=== PATIENT | male | born 1955 | race Caucasian/White ===

== ENCOUNTER 2019-10-14 18:13 | Emergency (ER) | payer OTHER ==
[2019-10-14 18:21] VITALS: TEMP 98.4; BMI 29.4
--- NOTE | 2019-10-14 19:04 | PDOC ---
Documentation entered by Pascale Mitchell SCRIBE, acting as scribe for Roc Toney MD. Roc Toney MD: This documentation has been prepared by the josafatibeStephen Maria, SCRIBE, under my direction and personally reviewed by me in its entirety. I confirm that the documentation accurately reflects all work, treatment, procedures, and medical decision making performed by me. History of Present Illness - General Chief Complaint: Pain Stated Complaint: RIGHT ANKLE PAIN Time Seen by Provider: 10/14/19 18:14 - History of Present Illness Initial Comments: 10/14/19 18:27 Patient is a 64 year old male with a significant past medical history of HLD and anxiety who presents to the emergency room with pain and swelling to his right ankle with a severity of 2/10. Patient states he was in his garden moving some things when he stepped on a rock and twisted his ankle. As per patient he immediately took 4 advils and iced his ankle with no sign of relief prompting him to the ER. Patient denies falling and trauma. He denies any recent fevers, chills, headache or dizziness. He denies any recent nausea, vomiting, diarrhea or constipation. He denies any recent chest pain or shortness of breath. He denies any recent dysuria, frequency, urgency or hematuria. Allergies: NKDA 10/14/19 18:30 Past History - Past Medical History Allergies/Adverse Reactions: Allergies Allergy/AdvReac Type Severity Reaction Status Date / Time No Known Drug Allergies Allergy Verified 10/14/19 18:18 celery AdvReac Intermediate Verified 10/14/19 18:18 chocolate flavor AdvReac Intermediate Verified 10/14/19 18:18 melon AdvReac Intermediate Verified 10/14/19 18:18 onion AdvReac Intermediate Verified 10/14/19 18:18 cantaloupe AdvReac Intermediate Uncoded 10/14/19 18:18 Home Medications: Ambulatory Orders Naproxen [Naprosyn -] 375 mg PO BID PRN #14 tablet 10/14/19 Review of Systems - Review of Systems Able to Perform ROS?: Yes Comments:: 10/14/19 18:27 CONSTITUTIONAL: Absent: Fever, Chills, Diaphoresis, Generalized Weakness, Malaise, Loss of Appetite HEENT: Absent: Rhinorrhea, Nasal Congestion, Throat Pain, Throat Swelling, Difficulty Swallowing, Mouth Swelling, Ear Pain, Eye Pain, Visual Changes CARDIOVASCULAR: Absent: Chest Pain, Syncope, Palpitations, Irregular Heart Rate, Lightheadedness , Peripheral Edema RESPIRATORY: Absent: Cough, Shortness of Breath, SOB with Exertion, Orthopnea, Wheezing, Stridor, Hemoptysis GASTROINTESTINAL: Absent: Abdominal pain, Abdominal Distension, Nausea, Vomiting, Diarrhea, Constipation, Melena, Hematochezia GENITOURINARY: Absent: Dysuria, Frequency, Urgency, Hesitancy, Flank Pain, Genital Pain MUSCULOSKELETAL:+Ankle pain and swelling. Absent: Myalgia, Arthralgia, Joint Swelling, Back pain, Neck Pain SKIN: Absent: Rash, Itching, Pallor HEMEATOLOGIC/IMMUNOLOGIC: Absent: Easy Bleeding, Easy Bruising, Lymphadenopathy, Frequent infections ENDOCRINE: Absent: Unexplained Weight Gain, Unexplained Weight Loss, Heat Intolerance, Cold Intolerance NEUROLOGIC: Absent: Headache, Focal Weakness, Paresthesias, Vertigo, Lightheadedness, Unsteady Gait, Seizure, Mental Status Changes, Incontinence PSYCHIATRIC: Absent: Anxiety, Depression *Physical Exam - Vital Signs Last Vital Signs Temp Pulse Resp BP Pulse Ox 98.4 F 70 16 116/65 96 10/14/19 18:18 12 18:18 10/14/19 18:18 10/14/19 18:18 10/14/19 18:18 - Physical Exam 10/14/19 19:00 GENERAL: The patient is awake, alert, and fully oriented, in no acute distress. HEAD: Normal with no signs of trauma. EYES: Pupils equal, round and reactive to light, extraocular movements intact, sclera anicteric, conjunctiva clear. EXTREMITIES: The right leg is normal above the ankle. The right ankle is notable for posterior tenderness along the distal tibia, and anterior tenderness along the distal fibula. The fifth metatarsal is nontender. Skin is intact. Pulses are normal. Sensation is intact. NEUROLOGICAL: Normal speech, limping gait. PSYCH: Normal mood, normal affect. SKIN: Warm, Dry, normal turgor, no rashes or lesions noted. ED Treatment Course - RADIOLOGY Radiology Studies Ordered: Category Date Time Status ANKLE-RIGHT [RAD] Stat Radiology 10/14/19 18:19 Taken Medical Decision Making - Medical Decision Making 10/14/19 19:00 Patient is a 64-year-old man who twisted his right ankle when he stepped on a rock in his garden this afternoon. He has tenderness bilaterally on examination of the malleolar I. 3 views of the right ankle demonstrate no fracture or dislocation upon my preliminary review. Radiology reading is pending at the time of discharge. Radiology follow-up procedure activated. Impression: Right ankle sprain Plan: Rest, ice, compression with Masood bandage, elevation, and nonsteroidals. Follow-up with orthopedics if not better in 1 week. Discharge - Discharge Information Problems reviewed: Yes Clinical Impression/Diagnosis: Right ankle sprain Qualifiers: Encounter type: initial encounter Involved ligament of ankle: anterior talofibular ligament Qualified Code(s): S93.491A - Sprain of other ligament of right ankle, initial encounter Condition: Stable Disposition: HOME - Admission No - Additional Discharge Information Prescriptions: Naproxen [Naprosyn -] 375 mg PO BID PRN #14 tablet PRN Reason: Pain - Follow up/Referral Referrals: Jimmy Lizarraga DO [Staff Physician] - 1 week - Patient Discharge Instructions Patient Printed Discharge Instructions: DI for Ankle Sprain Additional Instructions: Today you were evaluated for an injury to your right ankle. The x-ray shows no fracture or dislocation. The diagnosis is an ankle sprain. Use the Masood bandage while up, remove it at night. Rest, elevate the ankle above your heart , apply ice packs for 20 minutes every few hours, for the next 2 days, and take Aleve 2 tablets twice a day as needed for pain. Follow-up with Dr. Jimmy Lizarraga , orthopedic surgeon, in 1 week if the symptoms are not improving. Return to the emergency department for any severe or progressive symptoms. - Post Discharge Activity
[2019-10-14 19:29] VITALS: BP 120/70; PULSE 65
== END 2019-10-14 19:30 | disposition home or self-care (01) ==
LOC: FER 18:13
DX: S93.491A Sprain of other ligament of right ankle, initial encounter (principal); X58.XXXA Exposure to other specified factors, initial encounter; Y93.89 Activity, other specified; Y92.480 Sidewalk as the place of occurrence of the external cause; Z91.018 Allergy to other foods; E78.5 Hyperlipidemia, unspecified; F41.9 Anxiety disorder, unspecified
CPT/HCPCS: 73610-TC-RT-FY; 99282-25